=== PATIENT | female | born 1935 | race Caucasian/White ===

== ENCOUNTER 2016-08-04 18:59 | Emergency (ER) | payer MEDICARE, BC ==
[~2016-08-04 18:59] MED LIST: ADVAIR 2501 DISK W/D; ADVAIR 5001 DISK W/1 IH; ADVAIR 5001 DISK W/D PO; ALBUTEROL; AMAZING BUTT CREAM TOP; AMBIEN PO; AMLODIPINE BESY10 MG GT; AMLODIPINE BESY10 MG PO; ANTI-DIARRHEAL2 M1 GT; ASPIRIN81 M1 GT; ASPIRIN81 M2 PO; ASPIRIN81 MG PO; ASPIRINEC PO; ATROVENT HFA12.9 G1 IH; ATROVENT HFA12.9 GM; ATROVENT HFA12.9 GM INH; AZOR 10/20 MG T1 TAB PO; BACITRACIN28.4 GM TP; BECONASE-AQ25 ML IH; BISACODYL EC5 MG GT; BUMETANIDE0.5 MG GT; CARAFATE; CARAFATE PO; CARAFATE1 G PO; CARDIZEM CD180 MG PO; CARTIA XT PO; CATAPRES-TTS-20.2 MG EXT; CEPHALEXIN500 M1 GT; CLARINEX5 MG PO; CLONIDINE GT; CYMBALTA20 MG GT; DIFLUCAN PO; DIFLUCAN100 MG GT; DIFLUCAN100 MG PO; DULERA 200 MCG/13 GM IH; DUONEB 2.5-0.5 M3 ML; DUONEB 2.5-0.5 M3 ML NEB; FLAGYL GT; FLEXERIL PO; FLEXERIL10 MG PO; FLONASE16 GM; FLONASE16 GM IH; FORADIL12 MCG NEB; GAVISCON EXTRA355 ML PO; GLIPIZIDE5 MG/BOTTL GT; HCTZ PO; HYCODAN60 ML 5MG/ PO; HYDROCHLOROTH12.5 M1 PO; HYDROCHLOROTH12.5 MG PO; HYDROCODON-ACE1 EAC5 PO; HYDROCODONE BIT1 TAB GT; HYDROCODONE-APA1 T54 GT; KCL PO; LEXAPRO5 MG PO; LIDODERM30 EA TOP; LORCET 10/1 TAB 10/6 PO; LORCET 10/650 T1 TAB PO; METOPROLOL SUCC25 MG PEG; MICRO-K10 MEQ PO; NEXIUM20 MG GT; NEXIUM20 MG PO; NILSTAT PO; NORCO 10-325 TA1 TAB PO; NORCO 10/325 TA1 TAB GT; NORCO 10/325 TA1 TAB PO; NORVASC PO; NORVASC2.5 MG PO; PAXIL; PAXIL GT; PAXIL PO; PAXIL10 MG PO; PAXIL30 MG PO; PEXEVA30 MG GT; PHENERGAN PO; PHENERGAN25 MG PO; PREDNISONE PO; PREDNISONE10 MG/DOSE; PROTONIX PO; PROTONIX40 MG/BLIS PO; REGLAN PO; REGLAN10 MG GT; REGLAN10 MG PO; SYMBICORT INH; TUSSIONEX PENN473 ML GT; VICODIN; VICODIN PO; WELLBUTRIN XL PO; XANAX0.5 MG PO; XANAX1 MG GT
[2016-08-21] MEDS ORDERED: LIPITOR (07:23)
[2016-10-14] MEDS ORDERED: VITAMIN D (07:21)
[2016-10-14] MEDS ORDERED: BLOOD PRESSURE M PO (07:21)
[2016-10-14] MEDS ORDERED: HYDROCODON-ACE1 EAC9 PO (07:22)
[2016-10-14] MEDS ORDERED: REGLAN (07:22)
[2016-10-14] MEDS ORDERED: CENTRUM SILVER PO (07:23)
[2016-10-14] MEDS ORDERED: PAXIL (07:23)
[2016-10-14] MEDS ORDERED: NEBULIZER (07:27)
[2016-10-14] MEDS ORDERED: PROAIR HFA8.5 GM INH (07:28)
[2016-10-14] MEDS ORDERED: ASPIRIN EC81 M1 PO (07:38)
[2016-10-14] MEDS ORDERED: CHOLESTEROL PO (07:51)
[2016-10-14] MEDS ORDERED: PANTOPRAZOLE SO40 MG PO (08:21)
== END 2016-08-04 19:05 | disposition left against medical advice (07) ==
LOC: CFTX 18:59
DX: Z53.21 Procedure and treatment not carried out due to patient leaving prior to being seen by health care provider (principal)

== ENCOUNTER → 2016-08-21 | Day surgery (SDC) | payer MEDICARE, BC ==
[~2016-08-21] MED LIST changes: +ASPIRIN EC81 M1 PO; +BLOOD PRESSURE M PO; +CENTRUM SILVER PO; +CHOLESTEROL PO; +HYDROCODON-ACE1 EAC9 PO; +LIPITOR; +NEBULIZER; +PANTOPRAZOLE SO40 MG PO; +PROAIR HFA8.5 GM INH; +REGLAN; +VITAMIN D
--- NOTE | ~2016-08-21 | OR ---
Unit #: [id number] #: [id number] Patient: NOE DIAZ [id number] [address] [place], [place] [address] [id number] O MR#: [id number] NAME: NOE DIAZ ROOM: Date of Procedure: 08/21/2016 Admission Date: 08/21/2016 Surgeon: Tk Del Angel M.D. : 1935 Attending Physician: Tk Del Angel M.D. Primary Care Physician: Veronica Dunlap M.D. OPERATIVE REPORT PRIMARY CARE PHYSICIAN Veronica Dunlap M.D. PREOPERATIVE DIAGNOSES Dysphagia and bolus food impactions repeatedly. PROCEDURES PERFORMED 1. Upper gastrointestinal endoscopy and biopsy. 2. Upper gastrointestinal endoscopy and dilation. POSTOPERATIVE DIAGNOSES 1. The patient had a distal esophageal benign stricture. The latter was clearly obstructing, was dilated using a 15 to 18 mm TTS balloon. 2. Mild focal patchy erosive duodenitis. 3. A small hiatus hernia. 4. Rest of the examination up to third part of duodenum was normal. A biopsy was obtained from the antrum for CLOtest. RECOMMENDATIONS The patient will be started on pantoprazole 40 mg p.o. daily. In addition, she will have a repeat upper endoscopy and dilation in 2 months. SEDATION USED MAC. DESCRIPTION OF PROCEDURE Following detailed explanation of potential risks and complications of an upper endoscopy, namely perforation, bleeding, complication related to sedation, the patient was brought to GI lab and laid in the left lateral decubitus position. Lubricated tip of the Olympus video upper endoscope was passed through bite block into the proximal esophagus under direct vision. The entire esophageal mucosa was examined. The patient was noted to have distal esophageal benign stricture, which was clearly obstructing. In addition, a small hiatus hernia was noted. The scope was then advanced into the gastric cavity and the latter was insufflated. Mucosa of the fundus, body, and antrum was examined and appeared unremarkable. Pylorus was intubated with visualization of the duodenal bulb. The latter was noted to have focal patchy mild erosive duodenitis. Second and third part of the duodenum were normal. Upon withdrawal and retroflexion, incisura, cardia, and greater curve were examined and biopsy obtained from the antrum for CLOtest. The scope was withdrawn into the distal esophagus. The entire esophageal mucosa was examined all the way up to pharynx. No Unit #: [id number] #: [id number] Patient: NOE DIAZ additional findings noted. The patient tolerated the procedure without any postprocedure complications. Dictated by... Saba Peñaloza/roger TD: 08/21/2016 08:44 JOB #: [id number] OPERATIVE REPORT Page 1 of 1 X Tk Del Angel MD X PROCEDURE OPERATIVE NOTE
== END | disposition home or self-care (01) ==
LOC: COPS 06:45
DX: K22.2 Esophageal obstruction (principal); K29.80 Duodenitis without bleeding; K44.9 Diaphragmatic hernia without obstruction or gangrene
CPT/HCPCS: 87077

== ENCOUNTER → 2016-10-14 | Day surgery (SDC) | payer MEDICARE, BC ==
--- NOTE | ~2016-10-14 | OR ---
Unit #: [id number] #: [id number] Patient: NOE DIAZ [id number] [address] [place], [place] [address] [id number] O MR#: [id number] NAME: NOE DIAZ ROOM: Date of Procedure: 10/14/2016 Admission Date: 10/14/2016 Surgeon: Tk Del Angel M.D. : 1935 Attending Physician: Tk Del Angel M.D. Primary Care Physician: Veronica Dunlap M.D. OPERATIVE REPORT PREOPERATIVE DIAGNOSES The patient has come for elective dilation of the esophagus. She has history of esophageal stricture. It is noteworthy that she was written up for a PPI treatment, but somehow never took it. PROCEDURES PERFORMED 1. Upper gastrointestinal endoscopy and biopsy. 2. Upper gastrointestinal endoscopy and a dilation with a TTS balloon. POSTOPERATIVE DIAGNOSES 1. The patient had distal esophageal benign stricture. The latter was dilated using an 18 to 20 mm TTS balloon. 2. Mild antral gastritis. This in the form of diffuse erythema and erythematous streaks in the antral area. 3. Rest of the examination up to third part of duodenum was normal. Biopsies were obtained from the antrum for CLOtest. RECOMMENDATIONS The patient was given a prescription for pantoprazole 40 mg p.o. daily. It was stressed to her daughter they should not ever stop it and that this will prevent the stricture from coming back again and again in the future. She will be seen in the office in 3 months' time. SEDATION USED MAC. DESCRIPTION OF PROCEDURE Following detailed explanation of potential risks and complications of upper endoscopy, namely perforation, bleeding, and complications related to sedation, the patient was brought to GI lab and laid in the left lateral decubitus position. Lubricated tip of the Olympus video upper endoscope was passed through the bite block into the proximal esophagus under direct vision. The entire esophageal mucosa was examined. The patient was noted to have a benign stricture in the distal esophagus with a classic appearance. This was clearly obstructing. The scope was then advanced into the gastric cavity and the latter was insufflated. Mucosa of the fundus, body, and antrum was examined and changes of antral gastritis noted in the form of diffuse erythema and erythematous streaks in the antral area. Pylorus was intubated with visualization of the normal duodenal bulb and second and third part of the duodenum. Upon withdrawal and retroflexion; incisura, cardia, and greater curve was examined and biopsy was obtained from the antrum for CLOtest. The patient Unit #: [id number] #: [id number] Patient: NOE DIAZ also noted a medium-sized hiatus hernia. The scope was then withdrawn in the distal esophagus. The entire esophageal mucosa was examined all the way up to pharynx and no additional findings were noted. The scope was then withdrawn in the distal esophagus. An 18 to 20 mm TTS balloon was passed through the accessory channel of the scope and step-up dilation of the distal esophageal stricture was done. Excellent dilation was achieved. Minimal bleeding was noted at the area. This was thoroughly washed with water and good hemostasis was achieved. The scope was then withdrawn all the way up to pharynx and no additional findings were noted. The patient tolerated the procedure without any postprocedure complications. Dictated by... Saba Peñaloza/roger TD: 10/14/2016 13:30 JOB #: [id number] OPERATIVE REPORT Page 1 of 1 X Tk Del Angel MD X PROCEDURE OPERATIVE NOTE
== END | disposition home or self-care (01) ==
LOC: COPS 06:01
DX: K22.2 Esophageal obstruction (principal); K29.70 Gastritis, unspecified, without bleeding; K44.9 Diaphragmatic hernia without obstruction or gangrene; J45.909 Unspecified asthma, uncomplicated; K21.9 Gastro-esophageal reflux disease without esophagitis; M19.90 Unspecified osteoarthritis, unspecified site; Z87.442 Personal history of urinary calculi; Z87.01 Personal history of pneumonia (recurrent); Z87.19 Personal history of other diseases of the digestive system; Z88.1 Allergy status to other antibiotic agents; Z88.8 Allergy status to other drugs, medicaments and biological substances; Z79.82 Long term (current) use of aspirin; Z79.891 Long term (current) use of opiate analgesic; Z98.41 Cataract extraction status, right eye; Z98.42 Cataract extraction status, left eye; Z90.710 Acquired absence of both cervix and uterus; Z96.643 Presence of artificial hip joint, bilateral; Z96.652 Presence of left artificial knee joint; Z98.890 Other specified postprocedural states
CPT/HCPCS: 87077